=== PATIENT | male | born 1950 | race Caucasian/White ===

== ENCOUNTER 2018-11-11 09:52 | Day surgery (SDC) | payer MEDICARE, OTHER ==
[2018-11-11 10:55] LABS: HEMATOCRIT 44.4 % (42.0-54.0); HEMOGLOBIN 15.3 g/dL (13.5-17.5); MCH 31.6 pg (26.0-34.0); MCHC 34.5 g/dL (31.0-37.0); MCV 91.7 fL (80.0-100.0); MEAN PLATELET VOLUME 10.5 fL (7.4-10.4); RBC 4.84 10x6/uL (4.20-6.10); WBC 5.2 10x3/uL (4.8-10.8)
[2018-11-11 12:04] VITALS: BP 158/81; BMI 29.4
--- NOTE | 2018-11-16 07:50 | OP ---
PATIENT NAME: PABLITO KRAUS MEDICAL RECORD: [id number] :54 LOCATION:[facility] ADMISSION DATE: SURGEON: DARIUS BERUMEN DO DATE OF OPERATION: 11/11/2018 PROCEDURE: EGD with biopsies. INDICATIONS FOR PROCEDURE: Dysphagia, GERD. SCOPE: Olympus video gastroscope. MEDICATIONS: Propofol 150 mg IV per anesthesia. ESTIMATED BLOOD LOSS: Minimal. COMPLICATIONS: None. FINDINGS AND DESCRIPTION OF PROCEDURE: Informed consent was given. The patient was made comfortable with the above medication. He was kept in upright position due to a high risk for aspiration. The endoscope was advanced through the mouth under direct visualization to the second portion of the duodenum. The upper esophagus appeared normal other than a small nonobstructing esophageal web, which was biopsied with cold forceps. Proximal esophageal biopsies were taken with cold forceps as well. The endoscope was advanced down into the mid esophagus and cold forceps biopsies were taken from this site. The distal esophagus appeared normal. At the GE junction, there were very mild reflux changes consistent with LA class A reflux-induced esophagitis. The endoscope was advanced beyond the GE junction into the stomach and retroflexed to view the cardia, which appeared normal. The fundus was also normal. In the stomach body, there were very few small benign appearing fundic gland type gastric polyps. The antrum and prepyloric region appeared relatively normal. There was perhaps some erythema in the antrum. Random cold forceps biopsies were taken to submit for histopathology and to rule out the presence of H. pylori. The endoscope was advanced beyond the pylorus into the duodenum where there was some mild duodenitis in the bulb. Cold forceps biopsies were taken. The villi appeared somewhat flattened and this was likely reactive due to gastric acid. Once the endoscope was advanced into the second portion of the duodenum appeared normal. The endoscope was withdrawn from the patient. The patient tolerated the procedure well and there were no complications. IMPRESSIONS: 1. Nonobstructing benign-appearing esophageal web, status post biopsies. 2. LA class A reflux-induced esophagitis. 3. Benign-appearing fundic gland gastric polyps. 4. Duodenitis. 5. Biopsies also taken from the proximal esophagus and mid esophagus. PLAN AND RECOMMENDATIONS: 1. Discharge home when recovery parameters are met. 2. Follow up biopsy specimen results. 3. GERD diet and reflux precautions. 4. Increase omeprazole to 40 mg daily and continue ranitidine 300 mg daily. 5. We will recommend a esophageal manometry and pH impedance study to evaluate severity and extent of reflux. OPERATIVE REPORT [id number] PABLITO KRAUS TRANSINT:[id number] Voice Confirmation ID: [id number] DOCUMENT ID: [id number] DARIUS BERUMEN DO at 0750 CC: [id number] DICTATION DATE: 11/11/[address]: 11/11/18 1438 [facility] 11/11/18 [facility] [address] [place] [address]
== END 2018-11-11 14:00 | disposition home or self-care (01) ==
LOC: D.OPS 09:52
PROVIDERS: Anesthesiology; ATTEND Internal Medicine Gastroenterology
DX: Q39.4 Esophageal web (principal); K21.0 Gastro-esophageal reflux disease with esophagitis; K31.7 Polyp of stomach and duodenum; K29.80 Duodenitis without bleeding; K31.9 Disease of stomach and duodenum, unspecified; Z01.812 Encounter for preprocedural laboratory examination

== ENCOUNTER 2018-12-01 10:31 | Outpatient (CLI) | payer MEDICARE, OTHER | END 2018-12-01 13:54 | disposition home or self-care (01) | LOC: D.OPS 10:31 | PROVIDERS: ATTEND Internal Medicine Gastroenterology | DX: K21.9 Gastro-esophageal reflux disease without esophagitis (principal) ==